=== PATIENT | male | born 1975 | race Caucasian/White ===

== ENCOUNTER → 2021-01-07 | Emergency (ER) | payer MEDICAID, OTHER ==
[~2021-01-07] VITALS: Ht 185.4 cm; Wt 149.7 kg
[~2021-01-07] MED LIST: NIFEdipine 10 MG CAP PO ONE; cloNIDine HCL 0.1 MG TAB PO ONE
[2021-01-07 19:36] VITALS: BP 231/138
== END | disposition home or self-care (01) ==
LOC: EDBD 19:30 → ER 19:30
DX: I10 Essential (primary) hypertension (principal); Z95.1 Presence of aortocoronary bypass graft; Z88.0 Allergy status to penicillin; Z88.8 Allergy status to other drugs, medicaments and biological substances
CPT/HCPCS: 93005

== ENCOUNTER 2021-01-19 15:26 | Emergency (ER) | payer MEDICAID ==
[~2021-01-19] VITALS: Ht 185.4 cm; Wt 136.5 kg
[2021-01-19 15:34] VITALS: BP 151/80
== END 2021-01-19 17:57 | disposition left against medical advice (07) ==
LOC: ER 15:26
DX: M79.642 Pain in left hand (principal); Z53.21 Procedure and treatment not carried out due to patient leaving prior to being seen by health care provider; W22.8XXA Striking against or struck by other objects, initial encounter; Y93.89 Activity, other specified; Y92.89 Other specified places as the place of occurrence of the external cause; Y99.8 Other external cause status